=== PATIENT | female | born 2000 | race Caucasian/White ===

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

== ENCOUNTER 2018-06-03 14:22 | Emergency (ER) | END 2018-06-03 16:28 | disposition home or self-care (01) ==

== ENCOUNTER 2019-02-19 07:02 | Day surgery (SDC) | payer OTHER ==
[2019-02-19] VITALS (9 sets, daily range): BP systolic 95–112; BP diastolic 56–79; PULSE 66–88; RESP 16–33; Ht 149.9 cm; Wt 41.7 kg
[~2019-02-19] VITALS: Ht 149.9 cm; Wt 41.7 kg
[~2019-02-19 07:02] MED LIST: ALBU8.5H8 INH; AZIT250T PO; INHA1SPA19 MC; PROM5SYR2 PO
[2019-02-19] MEDS ORDERED: SOD CHLORIDE 0.9% 1,000 ML IV ONE (09:00)
[2019-02-19] MEDS ORDERED: CEFAZOLIN 2 GM/50 ML (PMX) 50 ML IVPB ONE (09:00)
[2019-02-19] MEDS ORDERED: BUPIVACAINE 0.5% (SDV) 30 ML INJ ONE (11:53)
--- NOTE | 2019-02-19 12:05 | PREAC ---
Date/Time of Note Date/Time of Note DATE: 02/19/19 TIME: 12:02 Anesthesia Eval and Record Evaluation Time Pre-Procedure Interview DATE: 02/19/19 TIME: 12:02 Age 18 Sex female NPO: 8 hrs Preoperative diagnosis left hip/side subcutaneous mass Planned procedure left hip/side subcutaneous mass excision Past Medical History Past Medical History: Includes (cerebral palsy) Surgery & Anesthesia Issues No known issue Meds Anticoagulation: No Beta Bob within 24 hr: No Reason Beta Bob not given: Pt. not on B-Bob Discontinued Scripts Promethazine HCl/Codeine (Prometh-Codein 6.25-10 mg/5 ml) 5 Ml Syrup, 5 ML PO QHS PRN for COUGH, #120 ML Prov:JAMAAL NDIAYE MD 09/23/17 Inhaler, Assist Devices (Aerochamber Mini) 1 Each Spacer, 1 EACH MC DIRECTED, #1 EA 0 Refills Prov:JAMAAL NDIAYE MD 09/23/17 Albuterol Sulfate* (Proair HFA*) 8.5 Gm Hfa.aer.ad, 2 PUFF INH Q4H PRN for WHEEZING AND SOB, #1 INHALER Prov:JAMAAL NDIAYE MD 09/23/17 Azithromycin* (Zithromax*) 250 Mg Tablet, 250 MG PO .ZPACK DIRECTED, #6 TAB TAKE 500 MG (2 TABS) THE FIRST DAY THEN 250 MG (1 TAB) DAYS 2-5 Prov:JAMAAL NDIAYE MD 09/23/17 Current Medications Sodium Chloride 1,000 ml @ 75 mls/hr [id number] ONCE IV Last administered on 02/19/19at 08:15; Admin Dose 75 MLS/HR; Start 02/19/19 at 09:00; Stop 02/19/19 at 22:19 Meds reviewed: Yes Allergies Coded Allergies: No Known Allergy (Unverified , 02/19/19) Allergies Reviewed: Yes Labs/Studies Labs Reviewed: Reviewed by anesthesiologist Result Diagram: 02/19/19 0749 02/19/19 0749 Laboratory Tests 02/19/19 07:49 test: Negative Pre-procedure Exam Last vitals Vital Signs Date Temp Pulse Resp B/P (MAP) Pulse Ox O2 O2 Flow FiO2 Time Delivery Rate 02/19/19 98.6 88 16 112/70 99 Room Air 08:10 (84) Airway: Adequate mouth opening, Adequate thyromental dist Mallampati: Mallampati II Teeth: Normal Lung: Normal Heart: Normal ASA Physical Status ASA physical status: 2 Emergency: None Planned Anesthetic General/MAC: MAC Planned Pain Management Parenteral pain med, Local by surgeon Pre-operative Attestations Prior to commencing anesthesia and surgery, the patient was re-evaluated, there was verification of: *The patient's identity *The results of appropriate recent lab work and preoperative vital signs *The above evaluation not changing prior to induction *Anesthetic plan, risk benefits, alternative and complications discussed with patient/family; questions answered; patient/family understands, accepts and wishes to proceed. CHACE PEDROZA PATIENT TRANSPORTATION DRIVER Feb 19, 2019 12:05
[2019-02-19] MEDS ORDERED: FENTAnyl 50 MCG/ML VIAL ONE (12:17)
[2019-02-19] MEDS ORDERED: CEFAZOLIN 1 GM INJ ONE (12:27)
[2019-02-19] MEDS ORDERED: PROPOFOL 20 ML ONE ×2 (12:27→12:32)
[2019-02-19] MEDS ORDERED: LIDOCAINE 2% (SDV) 5 ML INJ ONE (12:27)
[2019-02-19] MEDS ORDERED: OXYCODONE/ACETAMINOPHEN (5/325) TAB PO PRN (12:30)
[2019-02-19] MEDS ORDERED: HYDROmorphONE 1 MG/5 ML IV SYRINGE IV PRN (12:30)
[2019-02-19] MEDS ORDERED: FENTAnyl 50 MCG/ML VIAL IV PRN (12:30)
[2019-02-19] MEDS ORDERED: LIDOCAINE 1% (MPF) 30 ML INJ ONE (12:34)
[2019-02-19] MEDS ORDERED: KETOROLAC 30 MG INJ ONE (12:57)
--- NOTE | 2019-02-19 13:08 | SIPON ---
Date/Time of Note Date/Time of Note DATE: 02/19/19 TIME: 13:06 Operative Report Preoperative Diagnosis Subcutaneous mass left lateral buttock Postoperative Diagnosis The same Operation/Procedure Performed Excision of left lateral buttock subcutaneous mass. Surgeon see signature line mobile unit assistant None Anesthesia: MAC Estimated blood loss: none Transfusion Required none Specimen Yes the subcutaneous mass was sent to the pathology for evaluation. Grafts/Implants none Complications none CINDI NEWELL MD Feb 19, 2019 13:08
[2019-02-19] MEDS ORDERED: LACTATED RINGER'S 1,000 ML IV SCH (13:09)
--- NOTE | 2019-02-19 13:11 | PAC ---
Date/Time of Note Date/Time of Note DATE: 02/19/19 TIME: 13:10 Post-Anesthesia Notes Post-Anesthesia Note Last documented vital signs Vital Signs Date Temp Pulse Resp B/P (MAP) Pulse Ox O2 O2 Flow FiO2 Time Delivery Rate 02/19/19 98.2 99 12 109/79 100 Room Air 1310 Activity: WNL Respiratory function: WNL Cardiovascular function: WNL Mental status: Baseline Pain reasonably controlled: Yes Hydration appropriate: Yes Nausea/Vomiting absent: Yes CHACE PEDROZA CRNA Feb 19, 2019 13:11
[2019-02-19] MEDS ORDERED: ONDANSETRON 4 MG INJ IV PRN (13:30)
[2019-02-19] MEDS ORDERED: morphine 10 MG INJ IM PRN (13:30)
[2019-02-19] MEDS ORDERED: HYDROCODONE/APAP (5/325) TAB PO PRN (13:30)
--- NOTE | 2019-02-19 18:56 | OPR ---
DATE OF OPERATION: 02/19/2019 SURGEON: Dr. Maynor Dasilva [employer] ADVISER: None. ANESTHESIA: MAC and local. ANESTHESIOLOGIST: Certified nurse group contract analyst Tressa Ceja PREOPERATIVE DIAGNOSIS: Left lateral buttock subcutaneous mass. POSTOPERATIVE DIAGNOSIS: Left lateral buttock subcutaneous mass, pending pathology report. PROCEDURE: Excision of the mass and closure of the wound. INDICATION: This is a 18-year-old female with a case of cerebral palsy who was brought by her mother to the clinic, complaining of presence of a lump in the left lateral buttock area for a long time an d recently has been increasing in size and bothering her. Examination revealed a subcutaneous mass. The nature of it was not clear. The patient wanted it out and we recommended also that to be remove d and sent for pathologic evaluation. Risks and benefits of operation and possible complications including infection, scar formation, recur rence and chronic pain were explained to the patient and her mom. They understood and mother accepte d that, and patient was brought for operation to the operating room today. DESCRIPTION OF PROCEDURE: The patient was brought to the operating room, placed on operating table i n supine position. Anesthesia was induced by the anesthesiologist. Then, the position was changed t o right down decubitus and left up. Two grams of antibiotic Ancef was given to the patient IV. Time out was called. The patient was identified. Site of operation and type of operation were discussed among the team. Prep with Betadine and drape in a sterile fashion were performed. Local anesthetic using lidocaine 1% was injected in the area of the operation. About 12 mL was used. Elliptical skin incision was made, about 2 cm long and about 4 mm wide, and gently, the tumor was removed from subcu taneous tissue and was sent for pathologic evaluation. Hemostasis was achieved. Then, closure start ed, closing with #4-0 Monocryl. Several interrupted sutures were applied. At the end, Dermabond was applied over the wound and Telfa, and then sterile dressing was applied. The patient tolerated proc edure well. Sponge, needle and instrument count reported to be correct x2. ESTIMATED BLOOD LOSS: Nil. SPECIMEN: Yes, was sent for pathologic evaluation. The patient was transferred to recovery room in stable condition. Dictated By: MAYNOR SANTOYO/ABELARDO Conf#: [id number] [facility]#: [id number]
== END 2019-02-19 15:02 | disposition home or self-care (01) ==
LOC: SDS 07:02
DX: L72.0 Epidermal cyst (principal); L98.8 Other specified disorders of the skin and subcutaneous tissue
CPT/HCPCS: 11402; 80048; 85025; 85610; 85730; 88307; J0690; J1885; J3010; Z7610